=== PATIENT | female | born 2000 | race Caucasian/White ===

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

== ENCOUNTER 2022-12-12 11:07 | Emergency (ER) | payer OTHER ==
[~2022-12-12] VITALS: Ht 172.7 cm; Wt 136.1 kg
[~2022-12-12 11:07] MED LIST changes: +CEPH-588 PO; -DOXY-565 PO; +DOXY-745 PO; +IBUP-2213 PO
[2022-12-12 11:37] VITALS: BP 133/83; PULSE 75; RESP 18; TEMP 98; O2SAT 98
--- NOTE | 2022-12-12 12:09 | NUR ---
PA AT EVALUATING PT. PT INFORMED THE PA THAT SHE IS ALSO HAVING STOMACH ISSUES IN ADDITION TO HER EAR PAIN. DENIES HAVING A RECENT VIRUS/COLD.
[2022-12-12] MEDS ORDERED: ONDANSETRON 4 MG ODT PO ONE (12:20)
[2022-12-12 12:39] LABS: BASOPHILS # (AUTO) 0.1 K/uL (0.00-0.22); BASOPHILS % (AUTO) 0.8 % (0.0-2.0); EOSINOPHILS # (AUTO) 0.2 K/uL (0-0.4); EOSINOPHILS % (AUTO) 1.6 % (0.0-4.0); HEMATOCRIT 41.1 % (36-48); HEMOGLOBIN 13.6 g/dL (12.0-16.0); LYMPHOCYTES # (AUTO) 2.2 K/uL (2.5-16.5); LYMPHOCYTES % (AUTO) 22.4 % (20.5-51.1); MEAN CORPUSCULAR HEMOGLOBIN 28 pg (27-31); MEAN CORPUSCULAR HGB CONC 33 g/dL (33-37); MEAN CORPUSCULAR VOLUME 83.7 fL (80-94); MONOCYTES # (AUTO) 0.7 K/uL (0.8-1.0); MONOCYTES % (AUTO) 6.8 % (1.7-9.3); NEUTROPHILS # (AUTO) 6.7 K/uL (1.8-7.7); NEUTROPHILS % (AUTO) 68.4 % (42.2-75.2); PLATELET COUNT (AUTO) 201 K/uL (140-450); RED BLOOD CELL COUNT(AUTO) 4.91 MIL/uL (4.20-5.40); WHITE BLOOD COUNT (AUTO) 9.8 K/uL (4.5-11.0)
--- NOTE | 2022-12-12 12:50 | NUR ---
PATIENT AMBULATED TO ER BED 03
--- NOTE | 2022-12-12 13:01 | NUR ---
PATIENT PRESENTS TO ED WITH LEFT SIDE EAR PAIN ALONG WITH SYMPTOMS OF CONSTIPATION. PT STATES SHES BEEN HAVING EAR PAIN FOR 4 DAYS. PT STATES PAIN IS SHARP WITH THROBBING PAIN. PT HAS HAD N/V/ DENIES DIARREHA; SKIN IS PINK/WARM/DRY; AAOX4 WITH EVEN AND STEADY GAIT; LUNGS CLEAR BL; HR EVEN AND REGULAR; PT DENIES ANY FEVER, CP, SOB, OR COUGH AT THIS TIME; PATIENT STATES PAIN OF 8/10 AT THIS TIME; VSS; PATIENT POSITIONED FOR COMFORT; HOB ELEVATED; BEDRAILS UP X2; BED DOWN. ER MD MADE AWARE OF PT STATUS. PMHX ABD ISSUES ACID REFLUX GERD NKA MEDICATIONS MIRALAX PEPCID
[2022-12-12 13:06] VITALS: O2SAT 98
--- NOTE | 2022-12-12 13:11 | NUR ---
PTS URINE HAS BEEN COLLECTED. PT HAS BEEN PLACED IN ROOM HOB ELVEVATED. PROVIDER MADE AWARE. PT CALL LIGHT WITHING IN REACH.
[2022-12-12 13:46] LABS: ANION GAP 12.8 (8-16); CARBON DIOXIDE 27.2 mmol/L (21-32); CREATININE 0.7 mg/dL (0.6-1.3); TOTAL BILIRUBIN 0.6 mg/dL (0.0-1.0)
[2022-12-12 13:52] LABS: APPEARANCE,URINE CLEAR (CLEAR); BILIRUBIN,URINE NEGATIVE (NEGATIVE); BLOOD, URINE TRACE-I (NEGATIVE); COLOR,URINE YELLOW (YELLOW); LEUKOCYTE ESTERASE ,URINE NEGATIVE (NEGATIVE); NITRITE, URINE NEGATIVE (NEGATIVE); UGLUCOSE NEGATIVE (NEGATIVE)
[2022-12-12 14:21] LABS: RBC,URINE 0-5 /HPF (0-5)
[2022-12-12] MEDS ORDERED: ONDANSETRON 4 MG TAB ONE (14:47)
[2022-12-12] MEDS ORDERED: ONDANSETRON 4 MG ODT ONE (14:51)
--- NOTE | 2022-12-12 14:53 | NUR ---
PT HAS BEEN MEDICATED PER PROVIDERS ORDERS.
[2022-12-12] MEDS ORDERED: CIPR7.5S OT (15:30)
[2022-12-12] MEDS ORDERED: NA P133N1 RC (15:30)
[2022-12-12] MEDS ORDERED: DOCU-299 PO (15:30)
[2022-12-12 15:32] VITALS: BP 133/83; PULSE 75; RESP 18; TEMP 98; O2SAT 98
--- NOTE | 2022-12-12 15:35 | NUR ---
Patient discharged with v/s stable. Written and verbal after care instructions given and explained. Patient verbalized understanding. Ambulatory with steady gait. All questions addressed prior to discharge. Advised to follow up with PMD.
--- NOTE | 2022-12-12 15:41 | NUR ---
The patient's care was reviewed and supervised by RON WILKERSON RN.
== END 2022-12-12 15:36 | disposition home or self-care (01) ==
LOC: MED 11:07
DX: N83.202 Unspecified ovarian cyst, left side (principal); H60.92 Unspecified otitis externa, left ear; K59.00 Constipation, unspecified; R10.84 Generalized abdominal pain; R11.2 Nausea with vomiting, unspecified; Z79.899 Other long term (current) drug therapy
CPT/HCPCS: 36415; 74176; 80053; 81001; 81025; 83690; 85025; 99284; Q0162